=== PATIENT | female | born 1995 | race Caucasian/White ===

== ENCOUNTER 2020-08-20 11:15 | Outpatient (REF) | payer BC, SELFPAY ==
[2020-08-23 10:09] LABS: Patient Race White; SARS-CoV-2 RNA Undetected (Undetected); SARS-CoV-2 Specimen Source Nasopharynx
== END 2020-08-20 11:35 ==
LOC: NCHCN 11:15
PROVIDERS: PCP Internal Medicine; Visit Provider Internal Medicine
DX: Z20.828 Contact with and (suspected) exposure to other viral communicable diseases (principal)
CPT/HCPCS: U0003

== ENCOUNTER 2020-08-27 11:34 | Outpatient (REF) | payer BC, SELFPAY ==
[2020-08-27 19:22] LABS: HGB 12.6 g/dL (11.2-15.7); MCH 30.7 pg (27.0-33.0); MCHC 32.3 % (32.0-36.0); MCV 94.9 fL (80-95); MPV 11.5 fL (8.0-11.0); Platelet Count 300 10^3/uL (130-400); RBC 4.11 10^6/uL (3.93-5.22); RDW 13.4 % (11.7-14.6); RDW-SD 46.5 fL; WBC 5.23 10^3/uL (4.4-10.8)
[2020-08-27 19:53] LABS: Iron 69 ug/dL (50-170)
[2020-08-27 20:53] LABS: Anion Gap 8.6 mmol/L (3-11); BUN 10 mg/dL (7-18); CO2 27.4 mmol/L (21.0-32.0); Chloride 108 mmol/L (98-107); Ferritin 19 ng/mL (8-252); Glucose 99 mg/dL (74-106); Magnesium 2.1 mg/dL (1.8-2.4); Potassium 3.8 mmol/L (3.5-5.1); Sodium 144 mmol/L (136-145); TSH (W/Ref FT4) 0.49 uIU/mL (0.36-3.74); Vitamin B12 348 pg/mL (193-986)
== END 2020-08-27 11:54 ==
LOC: NCHCN 11:34
PROVIDERS: PCP Internal Medicine; Referring Provider Nurse Practitioner Family; Visit Provider Nurse Practitioner Family
DX: D50.8 Other iron deficiency anemias (principal); R61 Generalized hyperhidrosis
CPT/HCPCS: 80048; 85027; 82607; 82728; 83540; 83735; 84443